=== PATIENT | female | born 1950 ===

== ENCOUNTER 2020-06-26 06:10 | Day surgery (SDC) | payer OTHER ==
[~2020-06-26 06:10] MED LIST: BIOTIN5000 MCG; CENTRUM SILVER1 EAC2; DITROPAN XL10 MG; NORVASC5 MG; STOOL SOFTENER50 MG; TIROSINT112 MCG
[2020-06-26] MEDS ORDERED: ULTRACET PO (10:09)
[2020-06-26] MEDS ORDERED: MACROBID 100 M100 MG PO (10:09)
== END 2020-06-26 14:00 | disposition home or self-care (01) ==
LOC: CIR.AMB 06:10
PROVIDERS: ATTEND Obstetrics & Gynecology Gynecology
DX: N81.6 Rectocele (principal); N81.5 Vaginal enterocele